=== PATIENT | male | born 1985 | race Two or more races ===

== ENCOUNTER 2021-03-10 19:36 | Emergency (ER) | payer BC ==
[~2021-03-10] VITALS: Ht 167.6 cm; Wt 104.5 kg
--- NOTE | 2021-03-11 00:14 | RAD ---
XR CHEST 1V 03/10/2021 12:03 AM INDICATION: Shortness of air, cough COMPARISON: None available TECHNIQUE: Portable frontal view of the chest is provided. FINDINGS: The cardiomediastinal silhouette is within normal limits. Lungs are clear. There are no significant pleural effusions. There is no pulmonary vascular congestion. No pneumothora x. No suspicious osseous abnormality. IMPRESSION: There is no acute cardiopulmonary process. Electronically signed by: Stacy Rushing MD (03/11/2021 12:11 AM) [facility]
[2021-03-11 00:17] LABS: INFLUENZA A PATIENT NEGATIVE (NEGATIVE); INFLUENZA B PATIENT NEGATIVE (NEGATIVE)
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
[2021-03-11 00:29] VITALS: BP 118/78
== END 2021-03-11 01:01 | disposition home or self-care (01) ==
LOC: ER 19:36
DX: U07.1 COVID-19 (principal)
CPT/HCPCS: 71045; 87426; 87804; 99284; U0003